=== PATIENT | female | born 1970 | race Caucasian/White ===

== ENCOUNTER 2016-08-16 18:10 | Emergency (ER) | payer OTHER, SELFPAY ==
[~2016-08-16] VITALS: Ht 165.1 cm; Wt 53.3 kg
[2016-08-16] MEDS ORDERED: ONDANSETRON ODT 4 MG ONE (18:56)
[2016-08-16] MEDS ORDERED: ONDANSETRON ODT 8 MG PO ONE (19:00)
[2016-08-16] MEDS ORDERED: ONDANSETRON ODT 8 MG ONE (19:00)
[2016-08-16 19:06] VITALS: BP 111/69
== END 2016-08-16 19:16 | disposition left against medical advice (07) ==
LOC: ED 19:10
DX: F11.188 Opioid abuse with other opioid-induced disorder (principal); F12.10 Cannabis abuse, uncomplicated; F15.10 Other stimulant abuse, uncomplicated; F17.200 Nicotine dependence, unspecified, uncomplicated
CPT/HCPCS: 99283; Q0162

== ENCOUNTER 2016-12-10 21:45 | Emergency (ER) | payer OTHER ==
[~2016-12-10] VITALS: Ht 165.1 cm; Wt 58.0 kg
[2016-12-10] MEDS ORDERED: LIDOCAINE 1%, 20ML ONE (22:21)
[2016-12-10] MEDS ORDERED: LIDOCAINE 1%, 20ML INFIL ONE (22:30)
[2016-12-10 23:19] VITALS: BP 139/87
== END 2016-12-10 23:21 | disposition home or self-care (01) ==
LOC: ED 23:18
DX: J34.0 Abscess, furuncle and carbuncle of nose (principal); L02.01 Cutaneous abscess of face
CPT/HCPCS: 10060; 99283; J3490